=== PATIENT | female | born 1995 | race Hispanic/Latino ===

== ENCOUNTER 2018-01-21 04:44 | Emergency (ER) | payer MEDICAID, OTHER ==
[2018-01-21] MEDS ORDERED: ACETAMINOPHEN 325 MG TAB ONE (05:18)
[2018-01-21 05:30] LABS: APPEARANCE,URINE Cloudy (CLEAR); BILIRUBIN,URINE Negative (NEGATIVE); COLOR,URINE Yellow (YELLOW); GLUCOSE, URINE (UA) Negative (NEGATIVE); KETONES,URINE Negative (NEGATIVE); LEUKOCYTE ESTERASE ,URINE Moderate (NEGATIVE); NITRATE,URINE Positive (NEGATIVE); OCCULT BLOOD,URINE Negative (NEGATIVE); PH,URINE 7.5 (5.0-8.0); PROTEIN,URINE Negative (NEGATIVE)
[2018-01-21 05:35] LABS: RBC,URINE None Seen /HPF (0-1)
[2018-01-21 05:36] LABS: BACTERIA,URINE Many /HPF (None Seen); SQUAMOUS EPITHELIAL CELL,UR Few /HPF (0-2)
[2018-01-21] MEDS ORDERED: NITROFURANTOIN MONOHYD/M-CRYST 100 MG CAPSULE PO ONE (05:58)
[2018-02-08] MEDS ORDERED: NITR100C PO (13:34)
== END 2018-01-21 07:42 | disposition home or self-care (01) ==
LOC: EDH 04:44
DX: O23.11 Infections of bladder in pregnancy, first trimester (principal); R10.2 Pelvic and perineal pain; Z3A.01 Less than 8 weeks gestation of pregnancy
CPT/HCPCS: 36415; 76801; 81001; 81025; 84702; 86900; 86901; 87088; 87186; 87210; 87486; 87797

== ENCOUNTER 2018-01-21 20:07 | Emergency (ER) | payer MEDICAID, OTHER ==
[2018-02-08] MEDS ORDERED: NITR100C PO (13:34)
== END 2018-01-21 21:43 | disposition home or self-care (01) ==
LOC: EDH 20:07
DX: O20.0 Threatened abortion (principal); Z3A.09 9 weeks gestation of pregnancy

== ENCOUNTER 2018-01-25 13:55 | Emergency (ER) | payer MEDICAID, OTHER ==
[2018-01-25] MEDS ORDERED: AZITHROMYCIN 250 MG TABLET PO ONE (14:11)
[2018-02-08] MEDS ORDERED: NITR100C PO (13:34)
== END 2018-01-25 14:19 | disposition home or self-care (01) ==
LOC: EDH 13:55
DX: O26.891 Other specified pregnancy related conditions, first trimester (principal); A74.9 Chlamydial infection, unspecified; Z3A.10 10 weeks gestation of pregnancy
CPT/HCPCS: 99282

== ENCOUNTER 2018-02-09 05:30 | Day surgery (SDC) | payer MEDICAID ==
[2018-02-08 11:39] LABS: BASOPHILS % (AUTO) 0.8 % (0.0-5.0); EOSINOPHILS % (AUTO) 1.3 % (0.0-8.0); HEMATOCRIT 30.2 % (36-48); LYMPHOCYTES % (AUTO) 13.9 % (21.0-51.0); MEAN CORPUSCULAR HEMOGLOBIN 31.4 pg (27.0-33.0); MEAN CORPUSCULAR HGB CONC 35.3 g/dL (32.0-36.0); MEAN CORPUSCULAR VOLUME 88.9 fL (80-100); MONOCYTES % (AUTO) 7.3 % (3.0-13.0); NEUTROPHILS % (AUTO) 76.7 % (40.0-77.0); PLATELET COUNT (AUTO) 384 K/uL (130-400); WHITE BLOOD COUNT (AUTO) 8.6 K/uL (4.8-10.8)
[2018-02-08 11:49] VITALS: BP 110/64
[~2018-02-09] VITALS: Ht 153.7 cm; Wt 73.6 kg
[~2018-02-09 05:30] MED LIST: LACTATED RINGERS 1000ML 1,000 ML IV SCH; NITR100C PO
[2018-02-09 05:46] VITALS: BP 116/65
[2018-02-09] MEDS ORDERED: ONDANSETRON HCL 4 MG/2 ML VIAL ONE (06:43)
[2018-02-09] MEDS ORDERED: DEXAMETHASONE SOD PHOSPHATE 10MG/ML 1ML VIAL ONE (06:43)
[2018-02-09] MEDS ORDERED: GLYCOPYRROLATE 0.2 MG/ML 5 ML VIAL ONE (06:43)
[2018-02-09] MEDS ORDERED: LIDOCAINE PF 2% 5ML ABBOJECT ONE (06:43)
[2018-02-09] MEDS ORDERED: MIDAZOLAM HCL 1 MG/ML 2ML VIAL ONE (06:44)
[2018-02-09] MEDS ORDERED: PROPOFOL 10 MG/ML 20ML VIAL IV ONE (06:44)
[2018-02-09] MEDS ORDERED: FENTANYL CITRATE PF 50 MCG/1 ML 2ML VIAL ONE (06:44)
[2018-02-09] MEDS ORDERED: CALDOLOR 800MG+NS 250ML 250 ML IV ONE (07:33)
[2018-02-09] MEDS ORDERED: MEPERIDINE-PF 25 MG/ML SYG IVP PRN (07:45)
[2018-02-09] MEDS ORDERED: RACEPINEPHRINE HCL 2.25% 0.5 ML NEB SOLN NEB PRN (07:45)
[2018-02-09] MEDS ORDERED: METOCLOPRAMIDE 10 MG/2 ML VIAL IVP PRN (07:45)
[2018-02-09] MEDS ORDERED: NALOXONE HCL 0.4 MG/1 ML ML IVP PRN (07:45)
[2018-02-09] MEDS ORDERED: ONDANSETRON HCL 4 MG/2 ML VIAL IVP PRN (07:45)
[2018-02-09] MEDS ORDERED: KETOROLAC TROMETHAMINE 30MG/ML IVP PRN (07:45)
[2018-02-09] MEDS ORDERED: IPRATROPIUM/ALBUTEROL SULFATE 3 ML SOLUTION IH PRN (07:45)
[2018-02-09] MEDS ORDERED: MORPHINE SULFATE 5 MG/ML VIAL IVP PRN (07:45)
[2018-02-09] MEDS ORDERED: PROMETHAZINE HCL 25 MG/ML 1ML AMPULE IM PRN (07:45)
[2018-02-09] MEDS ORDERED: FENTANYL CITRATE PF 50 MCG/1 ML 2ML VIAL IVP PRN (07:45)
[2018-02-09 08:35] VITALS: BP 111/66
[2018-02-09 08:50] VITALS: BP 113/59
[2018-02-09 09:05] VITALS: BP 114/65
== END 2018-02-09 09:10 | disposition home or self-care (01) ==
LOC: DAH 05:30
PROVIDERS: ATTEND Obstetrics & Gynecology
DX: O03.4 Incomplete spontaneous abortion without complication (principal); D64.9 Anemia, unspecified; Z80.9 Family history of malignant neoplasm, unspecified; Z79.899 Other long term (current) drug therapy; Z68.31 Body mass index [BMI] 31.0-31.9, adult; J45.909 Unspecified asthma, uncomplicated
CPT/HCPCS: 36415 ×2; 59812; 84702; 85025; 86850; 86900; 86901; 88305; A4510; A4600; A4606; J1100; J1741; J2001; J2250; J2405; J2704; J3010; J3490; J7120 ×2

== ENCOUNTER 2018-02-14 13:48 | Emergency (ER) | payer MEDICAID ==
[~2018-02-14 13:48] MED LIST changes: -LACTATED RINGERS 1000ML 1,000 ML IV SCH
[2018-02-14 14:36] LABS: APPEARANCE,URINE Turbid (CLEAR); BILIRUBIN,URINE Negative (NEGATIVE); COLOR,URINE Dark Yellow (YELLOW); GLUCOSE, URINE (UA) Negative (NEGATIVE); KETONES,URINE Negative (NEGATIVE); LEUKOCYTE ESTERASE ,URINE Large (NEGATIVE); NITRATE,URINE Negative (NEGATIVE); OCCULT BLOOD,URINE Trace (NEGATIVE); PROTEIN,URINE Trace (NEGATIVE)
[2018-02-14 14:46] LABS: BACTERIA,URINE Few /HPF (None Seen); MUCUS,URINE Moderate LPF (None Seen); WBC,URINE 26-50 /HPF (0-1); YEAST,URINE BUDDING Rare /HPF (None Seen)
[2018-02-14 14:48] LABS: BASOPHILS % (AUTO) 0.4 % (0.0-5.0); EOSINOPHILS % (AUTO) 1.1 % (0.0-8.0); HEMATOCRIT 32.7 % (36-48); LYMPHOCYTES % (AUTO) 13.4 % (21.0-51.0); MEAN CORPUSCULAR HEMOGLOBIN 29.9 pg (27.0-33.0); MEAN CORPUSCULAR HGB CONC 34.4 g/dL (32.0-36.0); MEAN CORPUSCULAR VOLUME 87.1 fL (80-100); MONOCYTES % (AUTO) 8.2 % (3.0-13.0); NEUTROPHILS % (AUTO) 76.9 % (40.0-77.0); PLATELET COUNT (AUTO) 504 K/uL (130-400); RED BLOOD CELL COUNT(AUTO) 3.76 MIL/uL (4.00-5.50); RED CELL DISTRIBUTION WIDTH 12.6 % (11.0-15.5); WHITE BLOOD COUNT (AUTO) 11.8 K/uL (4.8-10.8)
[2018-02-14 14:58] LABS: CREATININE 0.6 mg/dL (0.5-1.5); POTASSIUM 4.2 mmol/L (3.5-5.1)
[2018-02-14 15:02] LABS: ALBUMIN 3.6 g/dL (3.5-5.0); BILIRUBIN,TOTAL 0.5 mg/dL (0.2-1.0); TOTAL PROTEIN, SERUM 7.8 g/dL (6.0-8.3)
[2018-02-14] MEDS ORDERED: LIDOCAINE HCL-MPF 1% 2ML VIAL ONE (15:19)
[2018-02-14] MEDS ORDERED: CEFTRIAXONE SODIUM 1 GM ONE (15:19)
[2018-02-14] MEDS ORDERED: LACTULOSE 20 GM/30 ML UDCUP ONE (17:34)
[2018-02-14] MEDS ORDERED: BISACODYL 10 MG SUPP.RECT RC ONE (17:34)
== END 2018-02-14 18:26 | disposition home or self-care (01) ==
LOC: EDH 13:48
DX: N39.0 Urinary tract infection, site not specified (principal); R10.2 Pelvic and perineal pain
CPT/HCPCS: 36415; 76770; 76856; 80053; 81001; 85025; 96372; 99285; J0696; J3490

== ENCOUNTER 2018-03-27 21:41 | Emergency (ER) | payer MEDICAID | END 2018-03-27 22:27 | disposition home or self-care (01) | LOC: EDH 21:41 | DX: R11.0 Nausea (principal); Z98.890 Other specified postprocedural states | CPT/HCPCS: 99281 ==

== ENCOUNTER 2018-08-17 01:48 | Emergency (ER) | payer MEDICAID, OTHER ==
[2018-08-17 02:21] LABS: APPEARANCE,URINE Cloudy (CLEAR); BILIRUBIN,URINE Negative (NEGATIVE); COLOR,URINE Yellow (YELLOW); GLUCOSE, URINE (UA) Negative (NEGATIVE); KETONES,URINE Negative (NEGATIVE); LEUKOCYTE ESTERASE ,URINE Small (NEGATIVE); NITRATE,URINE Negative (NEGATIVE); OCCULT BLOOD,URINE Negative (NEGATIVE); PH,URINE 6.5 (5.0-8.0); PROTEIN,URINE Negative (NEGATIVE)
[2018-08-17 02:30] LABS: BACTERIA,URINE Moderate /HPF (None Seen); MUCUS,URINE Few LPF (None Seen); SQUAMOUS EPITHELIAL CELL,UR Moderate /HPF (0-2)
[2018-08-17 02:41] LABS: HCG,QUAL RESULT NEGATIVE (NEGATIVE)
== END 2018-08-17 04:13 | disposition home or self-care (01) ==
LOC: EDH 01:48
DX: N39.0 Urinary tract infection, site not specified (principal); N83.202 Unspecified ovarian cyst, left side; J45.909 Unspecified asthma, uncomplicated
CPT/HCPCS: 76856; 81001; 81025

== ENCOUNTER 2018-12-15 08:18 | Emergency (ER) | payer MEDICAID ==
[2018-12-15 09:06] LABS: BASOPHILS % (AUTO) 0.6 % (0.0-5.0); EOSINOPHILS % (AUTO) 1.2 % (0.0-8.0); HEMATOCRIT 39.6 % (36-48); LYMPHOCYTES % (AUTO) 24.3 % (21.0-51.0); MEAN CORPUSCULAR HEMOGLOBIN 29.9 pg (27.0-33.0); MEAN CORPUSCULAR HGB CONC 33.8 g/dL (32.0-36.0); MEAN CORPUSCULAR VOLUME 88.6 fL (80-100); MONOCYTES % (AUTO) 8.2 % (3.0-13.0); NEUTROPHILS % (AUTO) 65.7 % (40.0-77.0); NUCLEATED RED BLOOD CELLS 0.1 % (0.0-0.19); PLATELET COUNT (AUTO) 342 K/uL (130-400); RED BLOOD CELL COUNT(AUTO) 4.48 MIL/uL (4.00-5.50); RED CELL DISTRIBUTION WIDTH 13.2 % (11.0-15.5); WHITE BLOOD COUNT (AUTO) 7.2 K/uL (4.8-10.8)
[2018-12-15 09:10] LABS: CREATININE 0.6 mg/dL (0.5-1.5); POTASSIUM 3.5 mmol/L (3.5-5.1)
[2018-12-15 09:21] LABS: ALBUMIN 3.5 g/dL (3.5-5.0); BILIRUBIN,TOTAL 0.3 mg/dL (0.2-1.0); TOTAL PROTEIN, SERUM 7.4 g/dL (6.0-8.3)
[2018-12-15 09:28] LABS: APPEARANCE,URINE Cloudy (CLEAR); BILIRUBIN,URINE Negative (NEGATIVE); COLOR,URINE Orange (YELLOW); GLUCOSE, URINE (UA) Negative (NEGATIVE); KETONES,URINE 15 mg/dL (NEGATIVE); LEUKOCYTE ESTERASE ,URINE Moderate (NEGATIVE); NITRATE,URINE Negative (NEGATIVE); OCCULT BLOOD,URINE Large (NEGATIVE); PROTEIN,URINE POS 1+ (NEGATIVE)
[2018-12-15 09:37] LABS: BACTERIA,URINE Rare /HPF (None Seen); MUCUS,URINE Rare LPF (None Seen); SQUAMOUS EPITHELIAL CELL,UR Few /HPF (0-2)
== END 2018-12-15 10:45 | disposition home or self-care (01) ==
LOC: EDH 08:18
DX: O20.0 Threatened abortion (principal); O23.11 Infections of bladder in pregnancy, first trimester; O99.511 Diseases of the respiratory system complicating pregnancy, first trimester; J45.909 Unspecified asthma, uncomplicated; Z3A.01 Less than 8 weeks gestation of pregnancy
CPT/HCPCS: 36415; 76801; 80053; 81001; 84702; 85025; 86900; 86901

== ENCOUNTER 2019-06-14 12:15 | Emergency (ER) | payer MEDICAID, OTHER ==
[2019-06-14 12:50] LABS: BILIRUBIN,URINE Negative (NEGATIVE); COLOR,URINE Yellow (YELLOW); GLUCOSE, URINE (UA) Negative (NEGATIVE); KETONES,URINE Negative (NEGATIVE); LEUKOCYTE ESTERASE ,URINE Moderate (NEGATIVE); NITRATE,URINE Negative (NEGATIVE); OCCULT BLOOD,URINE Moderate (NEGATIVE); PH,URINE 5.5 (5.0-8.0); PROTEIN,URINE Negative (NEGATIVE)
[2019-06-14 12:51] LABS: APPEARANCE,URINE SLIGHTLY CLOUDY (CLEAR)
[2019-06-14 12:54] LABS: HCG,QUAL RESULT NEGATIVE (NEGATIVE)
[2019-06-14 13:13] LABS: BACTERIA,URINE Few /HPF (None Seen)
[2019-06-14] MEDS ORDERED: DICYCLOMINE HCL 20 MG TAB ONE (13:20)
[2019-06-14] MEDS ORDERED: ACETAMINOPHEN EXTRA STRENGTH 500 MG TABLET ONE (13:20)
[2019-06-14] MEDS ORDERED: SIMETHICONE 80 MG TAB.CHEW ONE (13:20)
[2019-06-14 13:24] LABS: BASOPHILS % (AUTO) 0.6 % (0.0-5.0); EOSINOPHILS % (AUTO) 0.3 % (0.0-8.0); HEMATOCRIT 42.6 % (36-48); LYMPHOCYTES % (AUTO) 16.3 % (21.0-51.0); MEAN CORPUSCULAR HEMOGLOBIN 30.2 pg (27.0-33.0); MEAN CORPUSCULAR HGB CONC 34.5 g/dL (32.0-36.0); MEAN CORPUSCULAR VOLUME 87.6 fL (80-100); MONOCYTES % (AUTO) 5.9 % (3.0-13.0); NEUTROPHILS % (AUTO) 76.9 % (40.0-77.0); PLATELET COUNT (AUTO) 338 K/uL (130-400); RED BLOOD CELL COUNT(AUTO) 4.86 MIL/uL (4.00-5.50); RED CELL DISTRIBUTION WIDTH 12.7 % (11.0-15.5); WHITE BLOOD COUNT (AUTO) 10.3 K/uL (4.8-10.8)
[2019-06-14 13:32] LABS: CREATININE 0.7 mg/dL (0.5-1.5); POTASSIUM 4.1 mmol/L (3.5-5.1)
[2019-06-14 13:47] LABS: ALBUMIN 4.1 g/dL (3.5-5.0); BILIRUBIN,TOTAL 0.4 mg/dL (0.2-1.0); TOTAL PROTEIN, SERUM 7.9 g/dL (6.0-8.3)
== END 2019-06-14 14:39 | disposition home or self-care (01) ==
LOC: EDH 12:15
DX: R10.30 Lower abdominal pain, unspecified (principal); R19.7 Diarrhea, unspecified; J45.909 Unspecified asthma, uncomplicated
CPT/HCPCS: 36415; 80053; 81001; 81025; 84702; 85025

== ENCOUNTER 2020-04-09 23:18 | Emergency (ER) | payer MEDICAID ==
[2020-04-10] MEDS ORDERED: SODIUM CHLORIDE 0.9% 1000ML 2,000 ML IV ONE (00:28)
[2020-04-10 00:48] LABS: CREATININE 0.8 mg/dL (0.5-1.5)
[2020-04-10 00:52] LABS: ALBUMIN 3.7 g/dL (3.5-5.0); BILIRUBIN,TOTAL 0.3 mg/dL (0.2-1.0); TOTAL PROTEIN, SERUM 8.1 g/dL (6.0-8.3)
[2020-04-10 00:53] LABS: APPEARANCE,URINE Clear (CLEAR); BILIRUBIN,URINE Negative (NEGATIVE); COLOR,URINE Yellow (YELLOW); GLUCOSE, URINE (UA) Negative (NEGATIVE); HCG,QUAL RESULT NEGATIVE (NEGATIVE); KETONES,URINE Negative (NEGATIVE); LEUKOCYTE ESTERASE ,URINE Negative (NEGATIVE); NITRATE,URINE Negative (NEGATIVE); OCCULT BLOOD,URINE Negative (NEGATIVE); PH,URINE 5.5 (5.0-8.0); PROTEIN,URINE Negative (NEGATIVE)
[2020-04-10 01:04] LABS: BASOPHILS % (AUTO) 0.5 % (0.0-5.0); EOSINOPHILS % (AUTO) 0.6 % (0.0-8.0); HEMATOCRIT 41.1 % (36-48); LYMPHOCYTES % (AUTO) 16.9 % (21.0-51.0); MEAN CORPUSCULAR HEMOGLOBIN 30.1 pg (27.0-33.0); MEAN CORPUSCULAR HGB CONC 33.6 g/dL (32.0-36.0); MEAN CORPUSCULAR VOLUME 89.7 fL (79-99); MONOCYTES % (AUTO) 8.2 % (3.0-13.0); NEUTROPHILS % (AUTO) 72.3 % (40.0-77.0); PLATELET COUNT (AUTO) 414 K/uL (130-400); RED BLOOD CELL COUNT(AUTO) 4.58 MIL/uL (4.00-5.50); WHITE BLOOD COUNT (AUTO) 12.5 K/uL (4.8-10.8)
[2020-04-10] MEDS ORDERED: KETOROLAC TROMETHAMINE 30MG/ML ONE (01:50)
[2020-04-10] MEDS ORDERED: DICYCLOMINE HCL 20 MG TAB ONE (01:50)
[2020-04-10] MEDS ORDERED: HYOSCYAMINE SULFATE 0.125 MG TAB.SUBL SL ONE (01:50)
== END 2020-04-10 02:54 | disposition home or self-care (01) ==
LOC: EDH 23:18
DX: R19.7 Diarrhea, unspecified (principal); R10.30 Lower abdominal pain, unspecified; J45.909 Unspecified asthma, uncomplicated
CPT/HCPCS: 36415; 80053; 81003; 81025; 83605; 83690; 85025; 96361; 96374; 99283; J1885; J7030

== ENCOUNTER 2021-04-02 12:24 | Emergency (ER) | payer MEDICAID ==
[~2021-04-02] VITALS: Ht 152.4 cm; Wt 91.6 kg
[2021-04-02 12:25] VITALS: BP 101/69
[2021-04-02] MEDS ORDERED: DIPHENHYDRAMINE HCL 25 MG CAPSULE PO ONE (12:45)
[2021-04-02] MEDS ORDERED: ACETAMINOPHEN 500 MG TABLET PO ONE (12:45)
[2021-04-02] MEDS ORDERED: DIPHENHYDRAMINE HCL 25 MG CAPSULE ONE (13:03)
[2021-04-02] MEDS ORDERED: ACETAMINOPHEN 500 MG TABLET ONE (13:03)
[2021-04-02] MEDS ORDERED: D-ME1POW16 PO (13:49)
[2021-04-02] MEDS ORDERED: FEXO180T94 PO (13:49)
[2021-04-02 14:08] VITALS: BP 119/82
== END 2021-04-02 14:09 | disposition home or self-care (01) ==
LOC: EDH 12:24
DX: J06.9 Acute upper respiratory infection, unspecified (principal); J30.9 Allergic rhinitis, unspecified
CPT/HCPCS: 71045; 99283; Q0163

== ENCOUNTER 2022-02-25 12:11 | Emergency (ER) | payer MEDICAID ==
[~2022-02-25] VITALS: Ht 152.4 cm; Wt 94.8 kg
[~2022-02-25 12:11] MED LIST changes: +D-ME1POW16 PO; +FEXO180T94 PO
[2022-02-25 12:16] VITALS: BP 127/72
[2022-02-25] MEDS ORDERED: ONDANSETRON ODT 4MG TAB SL ONE (12:30)
[2022-02-25 12:41] LABS: HCG,QUAL RESULT NEGATIVE (NEGATIVE)
[2022-02-25 12:42] LABS: APPEARANCE,URINE Cloudy (CLEAR); BILIRUBIN,URINE Negative (NEGATIVE); COLOR,URINE Yellow (YELLOW); GLUCOSE, URINE (UA) Negative (NEGATIVE); KETONES,URINE Trace mg/dL (NEGATIVE); LEUKOCYTE ESTERASE ,URINE Moderate (NEGATIVE); NITRATE,URINE Negative (NEGATIVE); OCCULT BLOOD,URINE Negative (NEGATIVE); PH,URINE 5.5 (5.0-8.0); PROTEIN,URINE Negative (NEGATIVE)
[2022-02-25] MEDS ORDERED: CEFTRIAXONE 1G VIAL IVP ONE (12:48)
[2022-02-25] MEDS ORDERED: LIDOCAINE HCL-MPF 1% 2ML VIAL ONE (12:49)
[2022-02-25 12:57] LABS: BACTERIA,URINE Few /HPF (None Seen); MUCUS,URINE Few LPF (None Seen); RBC,URINE None Seen /HPF (0-1)
[2022-02-25] MEDS ORDERED: CEFTRIAXONE 1G VIAL IM ONE (13:00)
[2022-02-25] MEDS ORDERED: OSELTAMIVIR PHOSPHATE 75 MG CAP PO SCH (13:30)
[2022-02-25] MEDS ORDERED: ONDA4TAB10 PO (13:43)
[2022-02-25] MEDS ORDERED: CEPH500B PO (13:43)
[2022-02-25] MEDS ORDERED: OSEL75 PO (13:43)
== END 2022-02-25 13:56 | disposition home or self-care (01) ==
LOC: EDH 12:11
DX: J10.1 Influenza due to other identified influenza virus with other respiratory manifestations (principal); N39.0 Urinary tract infection, site not specified; Z20.822 Contact with and (suspected) exposure to COVID-19; Z79.899 Other long term (current) drug therapy
CPT/HCPCS: 81001; 81025; 87088; 87635; 87804 ×2; 96372; 99283; C9803; J0696; J3490

== ENCOUNTER 2025-01-30 22:45 | Emergency (ER) | payer BC, OTHER ==
[~2025-01-30] VITALS: Ht 152.4 cm; Wt 101.2 kg
[~2025-01-30 22:45] MED LIST changes: -D-ME1POW16 PO; +DIPH1TAB PO; +OMEP40CA21 PO; +ONDA-104 PO
[2025-01-30] MEDS ORDERED: ketOROlac 15MG/ML VIAL (15MG/ML) IV ONE (23:00)
[2025-01-30 23:32] LABS: HCG,QUALITATIVE URINE NEGATIVE (NEGATIVE)
[2025-01-30 23:34] LABS: ADD UA MICROSCOPIC YES; APPEARANCE,URINE CLOUDY (CLEAR); BILIRUBIN,URINE NEGATIVE (NEGATIVE); COLOR,URINE LIGHT-ORANGE (YELLOW); GLUCOSE, URINE (UA) NEGATIVE (NEGATIVE); KETONES,URINE NEGATIVE (NEGATIVE); LEUKOCYTE ESTERASE ,URINE 250 Leu/uL (NEGATIVE); NITRATE,URINE NEGATIVE (NEGATIVE); OCCULT BLOOD,URINE LARGE (NEGATIVE); PH,URINE 5.5 (5.0-8.0); PROTEIN,URINE 20 mg/dL (NEGATIVE); UROBILINOGEN,URINE 0.2 mg/dL (0.2-1.0)
[2025-01-30 23:36] LABS: BACTERIA,URINE FEW /HPF (None Seen); RBC,URINE TNTC /HPF (0-1); WBC,URINE 51-100 /HPF (0-1)
[2025-01-30] MEDS: ketOROlac 30MG VIAL (30MG/ML) IM ONE (23:51)
--- NOTE | 2025-01-31 00:43 | ERN ---
General Chief Complaint: Menstrual Cramps/Pain Stated Complaint: C/O HEAVY MENSTRUAL CYCLY X 4x THIS MONTH Time Seen by MD: 22:49 Time Seen by Midlevel: 22:49 Source: patient History of Present Illness Initial Comments The patient is a 29-year-old female with no significant past medical history presenting to the emergency department for evaluation of increased vaginal bleeding. The patient states her menstrual cycle has been ongoing for one month. Denies any generalized body weakness, nausea, vomiting, or any other symptoms at this time. Denies being . She normally has episodes like this but they are never accompanied by abdominal pain which concerned the patient today so that is why she presented to the ER for further evaluation. Allergies: Coded Allergies: No Known Drug Allergies (Verified Allergy, 02/06/13) Home Meds Active Scripts Omeprazole (Omeprazole) 40 Mg Capsule.dr, 40 MG PO DAILY, #30 CAP Prov:ROSEMARIE JORGE MD 07/03/23 Ondansetron HCl (Ondansetron HCl) 4 Mg Tablet, 4 MG PO TIDP PRN for VOMITING, #20 TAB Prov:ROSEMARIE JORGE MD 07/03/23 Diphenoxylate HCl/Atropine (Lomotil Tablet) 2.5 Mg-0.025 Mg Tablet, 2 TAB PO Q6H PRN PRN for DIARRHEA for 5 Days, #10 TAB 0 Refills Prov:ROSEMARIE JORGE MD 07/03/23 Fexofenadine HCl (Yulissa Allergy) 180 Mg Tablet, 180 MG PO DAILY, #30 TAB Prov:LAMBERTO BANKS 04/02/21 Reported Medications Nitrofurantoin Macrocrystal (Nitrofurantoin) 100 Mg Capsule, 100 MG PO [id number], CAP 02/08/18 Past Medical History Past Medical History: Asthma Past Surgical History: None Surgical History Other: D AND C Family History Family History: Negative Social History Social History: Negative Female( History) LMP: Jan 30, 2025 ROS Dictation CONSTITUTIONAL: Negative except for HPI HEAD/FACE: Negative except for HPI EENT: Negative except for HPI RESPIRATORY: Negative except for HPI GASTROINTESTINAL/ABDOMINAL: Negative except for HPI GENITOURINARY: Negative except for HPI MUSCULOSKELETAL: Negative except for HPI INTEGUMENTARY: Negative except for HPI NEUROLOGICAL/PSYCH: Negative except for HPI HEMATOLOGIC/LYMPHATIC: Negative except for HPI All Systems Negative, Except as noted above. 13 point review of systems assessed and all negative except for above. Physical Exam Physical Exam Dictation Vital Signs reviewed General Appearance: Alert, oriented x 3, no acute distress, well developed, nourished. Head and Face: non-traumatic. Eyes: PERRL, pink conjunctivas, eyelid no trauma, anterior chamber with arcus senilis. Ears: Pinnas intact and no signs of trauma or erythema ear canals clear and no discharge TM no erythema Nose: No discharge, no bleeding. Oropharynx: Mouth normal, tongue pink, pharynx clear,no erythema, tonsils no exudates, no abscesses noted, mucous membrane moist Neck: Supple, non-tender, no thyromegaly, no masses, no JVD, no bruits Breast:Deferred Chest:No tenderness, no crepitus, no paradoxical movement, no retractions Lungs:Clear, well-ventilated, symmetric, no rales, no wheezing, no rhonchi, no stridor, good breath sounds bilaterally Heart: Regular rate, regular rhythm, no murmur, no gallops Vascular: no peripheral edema, Abdomen: Soft, positive bowel sounds, nondistended, no guarding, nontender, no rebound, no masses no hepatomegaly, no splenomegaly, no Carrera's sign, no hernias. Rectal: Deferred Genital: Deferred Neurological: Normal speech, motor function intact, sensory function intact Musculoskeletal: Neck nontender, full range of motion, back nontender, full range of motion, Extremities: nontender, full range of motion Skin: Color pink, dry, no turgor, no rash, no lacerations, no abrasions, no contusions. Lymphatic: Deferred Results Laboratory and Microbiology Lab and Micro Result Laboratory Tests Test 01/30/25 23:00 Urine Color LIGHT-ORANGE (YELLOW) Urine Appearance CLOUDY (CLEAR) H Urine pH 5.5 (5.0-8.0) Urine Specific [place] 1.023 (1.001-1.031) Urine Protein 20 mg/dL (NEGATIVE) H Urine Glucose (UA) NEGATIVE mg/dL (NEGATIVE) Urine Ketones NEGATIVE mg/dL (NEGATIVE) Urine Occult Blood LARGE (NEGATIVE) H Urine Nitrate NEGATIVE (NEGATIVE) Urine Bilirubin NEGATIVE mg/dL (NEGATIVE) Urine Urobilinogen 0.2 mg/dL (0.2-1.0) Urine Leukocyte Esterase 250 Narendra/uL (NEGATIVE) H Urine RBC TNTC /HPF (0-1) H Urine WBC 51-100 /HPF (0-1) H Urine Bacteria FEW /HPF (None Seen) Urine HCG, Qualitative NEGATIVE (NEGATIVE) Labs Reviewed?: Yes MDM MDM: Differential diagnosis: Dysfunctional uterine bleeding, urinary tract infection, There are no social concerns with this patient. Prescription drug management Prescriptions will include: None Medical management and examination interpretation discussions were had by me with other qualified healthcare professionals as indicated for the patient's care. ED Course Orders Procedure Category Date Status Time Urinalysis Profile LAB 01/30/25 Complete 22:51 ,Urine Test LAB 01/30/25 Complete 22:51 Ketorolac PHA 01/30/25 Complete Tromethamine 30mg/Ml 23:30 Culture Urine BREANNE 01/30/25 In Process 23:35 Ondansetron Odt 4mg PHA 01/31/25 Complete Tab (Zofran 4mg Odt) 01:00 Ceftriaxone 1g Vial PHA 01/31/25 Complete (Rocephine 1g Inj) 01:00 Us Pelvic Non-Ob US 01/31/25 Taken Limited 00:42 Current Medications Medications (Trade) Dose Ordered Sig/Jovanna Route PRN Reason Start Time Stop Time Status Last Admin Dose Admin Ceftriaxone Sodium (ROCEphine 1G INJ) 1 gm ONCE ONCE IVPB 01/31/25 01:00 01/31/25 01:01 DC 01/31/25 00:55 Ketorolac Tromethamine (toRADol) 15 mg ONCE ONCE IV 01/30/25 23:00 01/30/25 23:03 DC Ketorolac Tromethamine (toRADol) 30 mg ONCE ONCE IM 01/30/25 23:30 01/30/25 23:31 DC 01/30/25 23:51 Ondansetron HCl (zoFRAN 4MG ODT) 4 mg ONCE ONCE SL 01/31/25 01:00 01/31/25 01:01 DC 01/31/25 00:54 Vital Signs Date Time Temp Pulse Resp B/P (MAP) Pulse Ox O2 Delivery O2 Flow Rate FiO2 01/31/25 01:04 97.7 78 18 119/65 98 Room Air* 0 21 01/30/25 22:48 98.4 98 20 126/69 98 Room Air DX & DISP Disposition: Discharge Departure Impression: Primary Impression: Urinary tract infection Additional Impression: Dysfunctional uterine bleeding Condition: Stable Scripts Ketorolac Tromethamine (Ketorolac Tromethamine) 10 Mg Tablet 1 TAB PO TID for pain for 5 Days, #15 TAB 0 Refills Prov: ANGELICA QUEVEDO 01/31/25 Nitrofurantoin/Nitrofuran Mac (Macrobid) 100 Mg Cap 1 CAP PO BID for 5 Days, #10 CAP 0 Refills Prov: ANGELICA QUEVEDO 01/31/25 Additional Instructions: Your urinalysis today reveals a urinary tract infection. You were given an antibiotic injection in the emergency department. Your pelvic ultrasound does not show any acute abnormalities. However, with your increased pain and bleeding you will need to follow up with an OBGYN for further evaluation. Referrals: YUNIEL DUBOIS (PCP) Time of Disposition: 02:29 I have reviewed the case, and I agree with, Diagnosis and Plan I performed the substantive portion of the visit. I have reviewed and personally made and approve the management plan that is documented in the note by myself or the BABAK. I acknowledge for responsibility for the patient's management plan. ANGELICA QUEVEDO Jan 31, 2025 00:43
[2025-01-31] MEDS: ondanSETRON ODT 4MG TAB SL ONE (00:54)
[2025-01-31] MEDS: cefTRIAXone 1G VIAL IVPB ONE (00:55)
[2025-01-31] MEDS ORDERED: KETO10TA2 PO (02:31)
[2025-01-31] MEDS ORDERED: MACR100 PO (02:31)
[2025-01-31 03:29] VITALS: BP 124/64; PULSE 84; RESP 16; TEMP 97.8; O2SAT 99
--- NOTE | 2025-01-31 10:05 | HMCIMG ---
Exam Type: US PELVIC NON-OB LIMITED Clinical Information: dysfunctional uterine bleeding Comparison: None Findings: The examination shows an anteverted uterus which is normal in size and echogenicity. It measures 7.6 x 3 x 5.6 cm. The endometrial lining is normal in thickness. It measures 7 mm. No intrauterine or ectopic seen. The ovaries are normal in size and echogenicity. The right ovary measures 2.8 x 2.9 x 2.8 cm. The left ovary measures 3.8 x 2.9 x 3 cm. Vascular Doppler flow exam and spectral analysis of waveforms analysis is unremarkable bilaterally. There is preserved vascularity to both ovaries on Doppler evaluation. Specifically, there is no evidence of ovarian torsion. No free fluid is noted throughout the cul-de-sac. There are no adnexal abnormalities. No other significant abnormalities are seen. No fluid collections or masses or free fluid are identified in the pelvis. Impression: NORMAL EXAM. No evidence of uterine pathology. No evidence of adnexal abnormalities or ovarian torsion. No intrauterine or ectopic seen.
== END 2025-01-31 03:30 | disposition home or self-care (01) ==
LOC: EDH 22:45
DX: N39.0 Urinary tract infection, site not specified (principal); N93.8 Other specified abnormal uterine and vaginal bleeding; J45.909 Unspecified asthma, uncomplicated; Z79.899 Other long term (current) drug therapy
CPT/HCPCS: 99284; 87086; 81001; 81025; 96372; 96365; 76857; J1885; J0696